=== PATIENT | male | born 1985 | race Caucasian/White ===

== ENCOUNTER → 2016-10-30 | Outpatient (CLI) | payer OTHER ==
--- NOTE | 2016-10-30 09:29 | Diagnostic Imaging Report ---
PROCEDURE: MRI right joint lower extremity without contrast. TECHNIQUE: Multiplanar, multisequence non contrast-enhanced MRI of the right lower extremity was accomplished. INDICATION: Knee pain. COMPARISON: There are no prior studies available for comparison. FINDINGS: On the sagittal proton dense series, there are faint areas of slightly increased signal within the substance of each of the posterior horn of each meniscus. These findings do not clearly communicate with the articular surfaces of the menisci and consequently are more likely due to degenerative disease than to a tear. However, there is slight blunting of the posterior horn of the medial meniscus and I am concerned that there is a small tear in this area. The anterior and posterior cruciate ligaments, quadriceps and infrapatellar tendons, the biceps femoris tendon and the iliotibial band are unremarkable for an acute injury. The medial and lateral retinacula appear to be intact. On the fat-saturated series, there are small areas of slightly increased signal in the medial most portion of the medial femoral condyle and medial proximal tibia. These may reflect mild bone edema. Whether these are due to a recent injury or mild repetitive trauma is not certain. No other bony abnormalities are appreciated. The knee joint itself is fairly well-maintained. 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 There is no sign of chondromalacia patella. There is no evidence for joint effusion or for a Munguia's cyst. IMPRESSION: 1. The slight blunting of the posterior horn of the medial meniscus does suggest a small tear. 2. The lateral meniscus and the major ligaments and tendons are intact. 3. The small areas of altered signal in the medial femoral condyle and medial proximal tibia may be secondary to mild bone edema. Whether they are related to recent injury or to repetitive trauma however is not certain. Dictated by: Dictated on workstation # [id number]
== END ==
LOC: RAD 07:22
PROVIDERS: ATTEND Orthopaedic Surgery
DX: M22.41 Chondromalacia patellae, right knee (principal)
CPT/HCPCS: 73721